=== PATIENT | male | born 1945 | race Caucasian/White ===

== ENCOUNTER → 2021-03-08 | Outpatient (CLI) | payer OTHER ==
[~2021-03-08] MED LIST: CEPHALEXIN500 MG PO; DOXYCYCLINE 10100 MG PO; NOHOMEMEDICATIONS; NORCO5 PO; ZYVOX600 MG PO
== END ==
LOC: HYPER 11:44
PROVIDERS: ATTEND Emergency Medicine
DX: T81.31XA Disruption of external operation (surgical) wound, not elsewhere classified, initial encounter (principal); L02.413 Cutaneous abscess of right upper limb; E46 Unspecified protein-calorie malnutrition; Z87.891 Personal history of nicotine dependence; Z85.038 Personal history of other malignant neoplasm of large intestine; Y92.238 Other place in hospital as the place of occurrence of the external cause; Y83.8 Other surgical procedures as the cause of abnormal reaction of the patient, or of later complication, without mention of misadventure at the time of the procedure